=== PATIENT | male | born 1965 | race African-American/Black ===

== ENCOUNTER → 2019-07-27 | Outpatient (CLI) | payer OTHER ==
[2014-12-16 23:20] VITALS: BP 159/100
[2019-07-27 11:46] LABS: BASO # 0.1 x10^3/uL (0.0-0.2); BASO % 1 % (0-3); EOS # 0.1 x10^3/uL (0.0-0.7); EOS % 1 % (0-3); HEMATOCRIT 51.8 % (39.0-53.0); HEMOGLOBIN 17.7 g/dL (13.0-17.5); LYMPH # 1.8 x10^3/uL (1.0-4.8); LYMPH % 25 % (24-48); MEAN CORPUSCULAR HEMOGLOBIN 27 pg (25-35); MEAN CORPUSCULAR HGB CONC 34 g/dL (31-37); MEAN CORPUSCULAR VOLUME 78 fL (79-100); MONO # 0.7 x10^3/uL (0.0-1.1); MONO % 9 % (0-9); NEUT # 4.6 x10^3/uL (1.8-7.7); NEUT % 63 % (31-73); PLATELET COUNT 213 x10^3/uL (140-400); RED BLOOD COUNT 6.63 x10^6/uL (4.30-5.70); RED CELL DISTRIBUTION WIDTH 13.7 % (11.5-14.5); WHITE BLOOD COUNT 7.3 x10^3/uL (4.0-11.0)
[2019-07-27 12:05] LABS: ALBUMIN 4.2 g/dL (3.4-5.0); ALBUMIN/GLOBULIN RATIO 1.2 (1.0-1.7); CALCIUM 9.3 mg/dL (8.5-10.1); CHOLESTEROL/HDL RATIO 4.9; CREATININE 1.1 mg/dL (0.7-1.3); GFR 84.7; POTASSIUM 4.2 mmol/L (3.5-5.1); TOTAL BILIRUBIN 0.7 mg/dL (0.2-1.0); TOTAL PROTEIN 7.8 g/dL (6.4-8.2)
== END | disposition home or self-care (01) ==
LOC: LAB 11:13
PROVIDERS: ATTEND Family Medicine
DX: I10 Essential (primary) hypertension (principal); G43.909 Migraine, unspecified, not intractable, without status migrainosus; E11.9 Type 2 diabetes mellitus without complications
CPT/HCPCS: 36415; 80053; 80061; 82043; 82306; 82607; 83036; 84443; 85025; 85651

== ENCOUNTER → 2019-07-30 | Outpatient (CLI) | payer OTHER ==
[2014-12-16 23:20] VITALS: BP 159/100
--- NOTE | 2019-07-30 12:56 | RAD ---
MRI of the brain without contrast 07/30/2019 Clinical History: Headaches for one month. Technique: Unenhanced T1-weighted sagittal and axial, T2-weighted axial and coronal and FLAIR and diffusion-weighted axial images of the brain were obtained. Findings: Comparison is made to the patient's CT scan of the head dated 08/01/2008. The ventricles and sulci are within normal limits in size and configuration. Patchy and multiple small scattered areas of increased signal intensity are seen within the periventricular and subcortical white matter on the FLAIR and T2-weighted images. These have a nonspecific MRI appearance but are felt to most likely represent areas of small vessel ischemic disease. No acute parenchymal abnormality is definitely seen. No extra-axial fluid collection is seen. There is no MRI evidence of acute ischemia/infarction. Mild mucosal thickening in seen scattered throughout the paranasal sinuses Normal flow voids are seen within the major vascular structures surrounding the brain parenchyma. Impression: No acute parenchymal abnormality is seen. Electronically signed by: Mandeep Weldon MD (07/30/2019 12:53 PM) [id number]
== END | disposition home or self-care (01) ==
LOC: MRI 09:36
PROVIDERS: ATTEND Family Medicine
DX: J34.89 Other specified disorders of nose and nasal sinuses (principal)
CPT/HCPCS: 70551

== ENCOUNTER → 2019-11-18 | Outpatient (CLI) | payer OTHER ==
[2014-12-16 23:20] VITALS: BP 159/100
[2019-11-18 15:01] LABS: BASO # 0.1 x10^3/uL (0.0-0.2); BASO % 1 % (0-3); EOS % 0 % (0-3); HEMATOCRIT 46.8 % (39.0-53.0); HEMOGLOBIN 15.8 g/dL (13.0-17.5); LYMPH # 1.3 x10^3/uL (1.0-4.8); LYMPH % 22 % (24-48); MEAN CORPUSCULAR HEMOGLOBIN 27 pg (25-35); MEAN CORPUSCULAR HGB CONC 34 g/dL (31-37); MEAN CORPUSCULAR VOLUME 79 fL (79-100); MONO # 0.5 x10^3/uL (0.0-1.1); MONO % 8 % (0-9); NEUT # 4.2 x10^3/uL (1.8-7.7); NEUT % 69 % (31-73); PLATELET COUNT 216 x10^3/uL (140-400); RED BLOOD COUNT 5.94 x10^6/uL (4.30-5.70); RED CELL DISTRIBUTION WIDTH 13.5 % (11.5-14.5); WHITE BLOOD COUNT 6.2 x10^3/uL (4.0-11.0)
[2019-11-18 15:02] LABS: BILIRUBIN,URINE NEGATIVE (NEG); CLARITY,URINE CLEAR; COLOR,URINE YELLOW; NITRITE,URINE NEGATIVE (NEG); PROTEIN,URINE NEGATIVE (NEG-TRACE); UROBILINOGEN,URINE 0.2 mg/dL (0.2 mg/dL)
[2019-11-18 15:08] LABS: RBC,URINE 0 /HPF (0-2)
[2019-11-18 15:09] LABS: BACTERIA,URINE 0 /HPF (0-FEW); WBC,URINE 0 /HPF (0-4)
[2019-11-18 15:21] LABS: ALBUMIN/GLOBULIN RATIO 1.4 (1.0-1.7); CALCIUM 9.1 mg/dL (8.5-10.1); CHOLESTEROL/HDL RATIO 3.8; CREATININE 0.8 mg/dL (0.7-1.3); GFR 121.9; POTASSIUM 3.9 mmol/L (3.5-5.1); TOTAL BILIRUBIN 0.5 mg/dL (0.2-1.0); TOTAL PROTEIN 6.9 g/dL (6.4-8.2)
[2019-11-18 15:32] LABS: FREE T4 1.1 ng/dL (0.76-1.46); THYROID STIM HORMONE (TSH) 0.846 uIU/mL (0.358-3.74)
[2019-11-19 03:07] LABS: HEMOGLOBIN A1C 7.1 % (4.8-5.6)
== END ==
LOC: LAB 14:33
PROVIDERS: ATTEND Family Medicine
DX: Z12.5 Encounter for screening for malignant neoplasm of prostate (principal); E11.9 Type 2 diabetes mellitus without complications; E55.9 Vitamin D deficiency, unspecified; R51 Headache; I10 Essential (primary) hypertension
CPT/HCPCS: 36415; 80053; 80061; 81001; 82043; 82306; 83036; 84439; 84443; 85025; 85651; G0103

== ENCOUNTER 2020-07-21 10:35 | Emergency (ER) | payer OTHER ==
[~2020-07-21] VITALS: Ht 170.2 cm; Wt 100.0 kg
[2020-07-21 11:20] LABS: BASO % 1 % (0-3); EOS # 0.2 x10^3/uL (0.0-0.7); EOS % 2 % (0-3); HEMATOCRIT 49.5 % (39.0-53.0); HEMOGLOBIN 16.9 g/dL (13.0-17.5); LYMPH # 1.4 x10^3/uL (1.0-4.8); LYMPH % 20 % (24-48); MEAN CORPUSCULAR HEMOGLOBIN 27 pg (25-35); MEAN CORPUSCULAR HGB CONC 34 g/dL (31-37); MEAN CORPUSCULAR VOLUME 79 fL (79-100); MONO # 0.6 x10^3/uL (0.0-1.1); MONO % 9 % (0-9); NEUT # 4.8 x10^3/uL (1.8-7.7); NEUT % 68 % (31-73); PLATELET COUNT 217 x10^3/uL (140-400); RED CELL DISTRIBUTION WIDTH 13.5 % (11.5-14.5); WHITE BLOOD COUNT 7.1 x10^3/uL (4.0-11.0)
--- NOTE | 2020-07-21 11:27 | RAD ---
EXAM: Chest, single view. HISTORY: Palpitations. COMPARISON: 08/19/2014 FINDINGS: A frontal view of the chest is obtained. There is no infiltrate, pleural effusion or pneumothorax. The heart is normal in size. IMPRESSION: No acute pulmonary finding. Electronically signed by: Bertha Arora MD (07/21/2020 11:24 AM) [facility]
[2020-07-21 11:33] LABS: CALCIUM 8.7 mg/dL (8.5-10.1); CREATININE 0.9 mg/dL (0.7-1.3); GFR 106.4; POTASSIUM 4.1 mmol/L (3.5-5.1)
[2020-07-21 11:39] LABS: ALBUMIN 3.6 g/dL (3.4-5.0); ALBUMIN/GLOBULIN RATIO 1.2 (1.0-1.7); MAGNESIUM 1.7 mg/dL (1.8-2.4); TOTAL BILIRUBIN 0.6 mg/dL (0.2-1.0); TOTAL PROTEIN 6.6 g/dL (6.4-8.2)
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
[2020-07-21] MEDS ORDERED: ASPIRIN 325 MG TABLET PO ONE (12:00)
--- NOTE | 2020-07-21 12:38 | EKG ---
[facility] [address] [place] [address] Test Date: 2020-07-21 Test Time: 10:43:47 Pat Name: ELMER UNGER Department: Room: Gender: M Cnc Supervisor: : 1965 Requested By: SHANNON HELTON Order Number: [id number] Reading MD: Hebert Singh Measurements Intervals [place] Rate: 96 P: 31 SD: 166 QRS: 38 QRSD: 128 T: 18 QT: 366 QTc: 463 Interpretive Statements SINUS RHYTHM RIGHT BUNDLE BRANCH BLOCK ABNORMAL ECG Electronically Signed On 07-25-2020 10:54:51 COVER MAKER by Hebert Singh
[2020-07-21 12:59] LABS: BILIRUBIN,URINE NEGATIVE (NEG); CLARITY,URINE CLEAR; COLOR,URINE YELLOW; NITRITE,URINE NEGATIVE (NEG); PH,URINE 5.5 (<5.0-8.0); PROTEIN,URINE NEGATIVE (NEG-TRACE); UROBILINOGEN,URINE 0.2 mg/dL (0.2 mg/dL)
[2020-07-21 13:04] LABS: BACTERIA,URINE 0 /HPF (0-FEW); RBC,URINE 0 /HPF (0-2); WBC,URINE OCC /HPF (0-4)
[2020-07-21 13:06] LABS: BARBITURATES NEG (NEG); BENZODIAZEPINES NEG (NEG); CANNABINOIDS NEG (NEG); COCAINE NEG (NEG); METHADONE NEG (NEG); OPIATES NEG (NEG); PHENCYCLIDINE NEG (NEG)
[2020-07-21 13:14] LABS: AMPHETAMINE/METHAMPHETAMINE NEG (NEG)
[2020-07-21 13:29] LABS: PROTHROMBIN TIME PATIENT 12.2 SEC (11.7-14.0)
[2020-07-21] MEDS ORDERED: MAGNESIUM HYDROXIDE 2,400 MG/30 ML ORAL.SUSP. PO PRN (13:30)
[2020-07-21] MEDS ORDERED: BISACODYL 10 MG SUPP.RECT. PR PRN (13:30)
[2020-07-21] MEDS ORDERED: ONDANSETRON PF 4 MG/2 ML VIAL. IVP PRN (13:30)
[2020-07-21] MEDS ORDERED: ACETAMINOPHEN 325 MG TABLET. PO PRN (13:30)
[2020-07-21] MEDS ORDERED: PROCHLORPERAZINE 10 MG/2 ML VIAL. IVP PRN (13:30)
[2020-07-21] MEDS ORDERED: ZOLPIDEM 5 MG TABLET. PO PRN (13:30)
[2020-07-21] MEDS ORDERED: IOHEXOL 350 MG/ML 100 ML VIAL. IV ONE (13:30)
[2020-07-21] MEDS ORDERED: HYDROmorphone 2 MG/ML VIAL IV PRN (13:30)
[2020-07-21] MEDS ORDERED: CALCIUM CARBONATE 500 MG TAB.CHEW PO PRN (13:30)
[2020-07-21] MEDS ORDERED: IBUPROFEN 400 MG TABLET. PO PRN (13:30)
[2020-07-21] MEDS ORDERED: DEXTROSE 50% 25 GM / 50ML DISP.SYRIN. IV PRN ×3 (13:30→13:45)
[2020-07-21] MEDS ORDERED: MORPHINE SULFATE 2 MG/ML VIAL. IV PRN ×2 (13:30)
[2020-07-21] MEDS ORDERED: MAG HYDROX/ALUMINUM HYD/SIMETH 30 ML ORAL.SUSP PO PRN (13:30)
[2020-07-21] MEDS ORDERED: CONTRAST GIVEN. MC PRN (13:30)
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
[2020-07-21 13:50] VITALS: BP 168/100
[2020-07-21] MEDS ORDERED: ENOXAPARIN 40 MG/0.4 ML SYRINGE. SQ SCH (14:00)
[2020-07-21] MEDS ORDERED: MAGNESIUM SULFATE 1GM 100 ML IV ONE (14:00)
--- NOTE | 2020-07-21 14:00 | RAD ---
PQRS Compliance Statement: One or more of the following individualized dose reduction techniques were utilized for this examination: 1. Automated exposure control 2. Adjustment of the mA and/or kV according to patient size 3. Use of iterative reconstruction technique CT CHEST WITH CONTRAST, PULMONARY ANGIOGRAM History: Reason: soa, chest pain, diaphoresis, palpitation / Comparison: None. Technique: Helical CT of the chest was performed after the administration of 100 cc of Omnipaque 350 intravenous contrast according to PE protocol. Axial and coronal reconstructions were obtained. 3-D MIP images were constructed to better evaluate the pulmonary arteries. Findings: Pulmonary arteries are adequately opacified. There is no evidence of pulmonary embolism. There is no thoracic aortic dissection. The thyroid is symmetric. There is no adenopathy in the chest. Cardiac size normal, no pericardial effusion. No pleural abnormality. There are calcified granulomas in the left lung. The lungs are otherwise clear. Central airways are patent. Calcified granulomas in the spleen. There is no acute bone abnormality. Degenerative endplate spurring lower thoracic spine. IMPRESSION: There is no pulmonary embolus. Electronically signed by: Sandeep Crawford MD (07/21/2020 1:57 PM) [facility]
[2020-07-21] MEDS ORDERED: INSULIN LISPRO 300 UNITS/3 ML VIAL. SQ SCH (17:00)
[2020-07-21] MEDS ORDERED: INSULIN GLARGINE SYRINGE. SQ SCH (21:00)
--- NOTE | 2020-07-23 13:20 | NUR ---
IP: Informed pt of negative COVID test. Pt verbalized understanding.
--- NOTE | 2020-07-30 18:06 | PDOC3 ---
Discharge Summary Visit Information Date of Admission: Jul 21, 2020 Date of Discharge: Jul 21, 2020 Final Diagnosis Problems Medical Problems: (1) Chest pain Status: Acute (2) Person under investigation for COVID-19 Status: Acute Brief Hospital Course Allergies Allergies Coded Allergies Type Severity Reaction Last Updated Verified No Known Drug Allergies 08/19/14 No Brief Hospital Course Mr. Kelsey is a 54 old male who presented with intermittent substernal chest pain for the past week. EKG obtained in ER shows right bundle branch block, and patient denies any history or knowledge of prior right bundle branch block. He was admitted with cardiology consult, however patient left AMA. Discharge Information Condition at Discharge: Stable Disposition/Orders: Other (Left AMA) Scheduled Sulfamethoxazole/Trimethoprim (Bactrim Ds Tablet) 1 Each Tablet, 1 TAB PO BID for 10 Days, #20 Ref 0 Prescribed by: DORIS HUERTAS D.O. on 07/25/20 1309 Justicifation of Admission Dx: Justifications for Admission: Justification of Admission Dx: Yes Comments: Unstable Angina KENDALL FOSS MD Jul 30, 2020 18:06
== END 2020-07-21 14:18 | disposition left against medical advice (07) ==
LOC: ER 10:35 → UNDOADMIN 12:48 → 6 SOUTH 12:48 → ER 14:18
DX: R07.2 Precordial pain (principal); Z20.828 Contact with and (suspected) exposure to other viral communicable diseases; I45.10 Unspecified right bundle-branch block; R06.02 Shortness of breath; E11.9 Type 2 diabetes mellitus without complications; E78.00 Pure hypercholesterolemia, unspecified; I10 Essential (primary) hypertension; G43.909 Migraine, unspecified, not intractable, without status migrainosus
CPT/HCPCS: 36415; 71045; 71275; 80053; 80307; 81001; 83735; 83880; 84443; 84484; 85025; 85379; 85610; 93005; 99285; J1815; Q9967; U0003

== ENCOUNTER 2020-07-25 11:58 | Emergency (ER) | payer OTHER ==
[~2020-07-25] VITALS: Ht 170.2 cm; Wt 110.0 kg
[2020-07-25 12:56] VITALS: BP 161/81
[2020-07-25] MEDS ORDERED: SULF1TAB24 PO (13:09)
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
== END 2020-07-25 13:18 | disposition home or self-care (01) ==
LOC: ER 11:58
DX: L03.011 Cellulitis of right finger (principal); E11.9 Type 2 diabetes mellitus without complications; E78.00 Pure hypercholesterolemia, unspecified; I10 Essential (primary) hypertension; G43.909 Migraine, unspecified, not intractable, without status migrainosus; Z98.890 Other specified postprocedural states
CPT/HCPCS: 10060; 99283

== ENCOUNTER → 2020-09-12 | Outpatient (CLI) | payer OTHER ==
[~2020-09-12] MED LIST: SULF1TAB24 PO
[2020-09-12 12:10] LABS: BASO # 0.1 x10^3/uL (0.0-0.2); BASO % 1 % (0-3); EOS # 0.1 x10^3/uL (0.0-0.7); EOS % 1 % (0-3); HEMATOCRIT 49.3 % (39.0-53.0); HEMOGLOBIN 16.7 g/dL (13.0-17.5); LYMPH # 1.4 x10^3/uL (1.0-4.8); LYMPH % 22 % (24-48); MEAN CORPUSCULAR HEMOGLOBIN 27 pg (25-35); MEAN CORPUSCULAR HGB CONC 34 g/dL (31-37); MEAN CORPUSCULAR VOLUME 79 fL (79-100); MONO # 0.5 x10^3/uL (0.0-1.1); MONO % 8 % (0-9); NEUT # 4.4 x10^3/uL (1.8-7.7); NEUT % 68 % (31-73); PLATELET COUNT 214 x10^3/uL (140-400); RED BLOOD COUNT 6.27 x10^6/uL (4.30-5.70); RED CELL DISTRIBUTION WIDTH 13.9 % (11.5-14.5); WHITE BLOOD COUNT 6.5 x10^3/uL (4.0-11.0)
[2020-09-12 12:26] LABS: BILIRUBIN,URINE NEGATIVE (NEG); CLARITY,URINE CLEAR; COLOR,URINE YELLOW; NITRITE,URINE NEGATIVE (NEG); PROTEIN,URINE NEGATIVE (NEG-TRACE); UROBILINOGEN,URINE 0.2 mg/dL (0.2 mg/dL)
[2020-09-12 12:27] LABS: ALBUMIN 4.1 g/dL (3.4-5.0); ALBUMIN/GLOBULIN RATIO 1.3 (1.0-1.7); CALCIUM 9.5 mg/dL (8.5-10.1); CREATININE 0.9 mg/dL (0.7-1.3); POTASSIUM 4.1 mmol/L (3.5-5.1); TOTAL BILIRUBIN 0.5 mg/dL (0.2-1.0); TOTAL PROTEIN 7.3 g/dL (6.4-8.2)
[2020-09-12 12:28] LABS: BACTERIA,URINE 0 /HPF (0-FEW); RBC,URINE 0 /HPF (0-2); SPERM,URINE PRESENT /HPF; WBC,URINE 0 /HPF (0-4)
[2020-09-13 07:16] LABS: HEMOGLOBIN A1C 11.6 % (4.8-5.6)
== END ==
LOC: LAB 11:21
PROVIDERS: ATTEND Family Medicine
DX: Z12.5 Encounter for screening for malignant neoplasm of prostate (principal); E55.9 Vitamin D deficiency, unspecified; E11.8 Type 2 diabetes mellitus with unspecified complications; I10 Essential (primary) hypertension; E11.65 Type 2 diabetes mellitus with hyperglycemia; R07.89 Other chest pain; Z20.828 Contact with and (suspected) exposure to other viral communicable diseases
CPT/HCPCS: 36415; 80053; 80061; 81001; 82043; 82306; 82550; 83036; 84443; 85025; G0103

== ENCOUNTER → 2020-09-28 | Outpatient (CLI) | payer OTHER ==
--- NOTE | 2020-09-28 17:00 | RAD ---
MR#: [id number] Date of Study: 09/28/2020 Ordering Physician: TRUONG MARQUEZ, Referring Physician: ETHEL WOODS Tech: JC Casarez APPROVED REPORT Test Type: Exercise Stress Nurse/Tech: GRACIA JOVEL Test Indications: CHEST PAIN Cardiac History: HTN, SEE EMR Medications: SEE EMR Medical History: SEE EMR Resting ECG: SR W/BBB Resting Heart Rate: 81 bpm Resting Blood Pressure: 128/81mmHg Pretest Chest Pain: No chest pain Nurse/Tech Notes S1S2, VSS, DENIED CP AND SOA. LUNGS CTA. Consent: The procedure was explained to the patient in lay terms. Informed consent was witnessed. Reuben eout was entered into [employer] History and Stress Test performed by RT Vasquez (R) (N) Stress Symptoms PT TOLERATED TREADMILL TEST WELL, DENIED CP, ONLY COMPLAINT WAS SOA DUE TO WEARING TWO MASKS. BP ELEV ATED DURING EXERCISE. POST EXERCISE Reason for Termination: Reached target heart rate Target HR: 140 Max HR: 140 bpm 100% of Maximum Predicted HR: 140 bpm Exercise duration: 11:33 min:sec, 4 Stage Exercise capacity: 10.1METs Max Blood Pressure: 208/82mmHg Blood Pressure response to exercise: Normal blood pressure response during stress. Heart Rate response to exercise: WNL Chest Pain: No. Arrhythmia: No. ST Change: . . INTERPRETATION Stress EKG Conclusion: Grossly no significant EKG changes with stress - significant motion artifact n oted. Imaging Protocol IMAGE PROTOCOL: Rest Tc-99m/stress Tc-99m 1 day Rest: Stress: Viability: Radiopharm.Tc99m [id number] Sestamibi [id number] 31.5mCi Duration 15min. 10min. Img Date 09/28/2020 09/28/2020 Inj-Img Uhxa16fks. 60min. Post-Injection Exercise: 1 minute Rest Admin Site:IV - Right ForearmAdministrator:JC Casarez Stress Admin Site: IV - Right ForearmAdministrator: RT Vasquez (R)(N) STRESS DATA End Diast. Vol.121.0mlAv. Heart Rate93.0bpm End Syst. Vol.25.0mlCO Index BSA0.0L/min Myocardial Sate097.0gEject. Tzaaivqw25.0% Stress Rates Pk. Fill Rate3.33EDV/secLVtime Pk. Fill 168.01msec Pk. Empty Rate4.56ESV/secLVtime Pk. Bajrq416.96msec 1/3 Pk. Fill1.93EDV/sec Stress Scores Regional WT0.00Summed WT2.00 Regional WM0.00Summed WM0.00 The rest and stress images show normal perfusion, normal contraction and thickening. LV Perf. Quant 17 Seg. SSS0.00 17 Seg. SRS0.00 17 Seg. SDS0.00 Stress Defect Extent (% LAD)0.00Rest Defect Extent (% LAD)0.00Rev. Defect Extent (% LAD)0.00 Stress Defect Extent (% LCX) 0.00Rest Defect Extent (% LCX)0.00Rev. Defect Extent (% LCX)0.00 Stress Defect Extent (% RCA)0.00Rest Defect Extent (% RCA)0.00Rev. Defect Extent (% RCA)0.00 Stress Defect Extent (% CAM)0.00Rest Defect Extent (% CAM)0.00Rev. Defect Extent (% CAM)0.00 Other Information Quality:Fair Risk Assessment: Low Risk Conclusion 1. Grossly normal stress ekg, interpretation limited due to motion artifact. 2. Adequate exercise capacity with 10 Mets achieved. 3. Normal perfusion at stress/rest. 4. Normal EF at > 70% 5. Low risk study overall Signed by : Zach Bravo, Electronically Approved : 09/28/2020 16:59:57
== END ==
LOC: NM 07:45
PROVIDERS: ATTEND Internal Medicine Cardiovascular Disease
DX: I10 Essential (primary) hypertension (principal); R07.9 Chest pain, unspecified
CPT/HCPCS: 78452; 93017; A9500